=== PATIENT | male | born 1985 | race African-American/Black ===

== ENCOUNTER 2021-08-25 16:38 | Emergency (ER) | payer OTHER, SELFPAY ==
--- NOTE | ~2021-08-25 | CT_ITS ---
EXAMINATION: CT brain wo con DATE: 08/25/2021 17:11 INDICATION: Headache, left arm paresthesia TECHNIQUE: Computed tomography (CT) of the head was performed without intravenous contrast. The mA wa s adjusted according to patient size. Iterative reconstruction technique was employed. Exam dose: 60 5.33 mGy-cm total exam DLP. COMPARISON: None FINDINGS: No intracranial mass lesion or hemorrhage or cerebrovascular accident. Normal bella-white ma tter differentiation. Normal ventricular size. No subdural or epidural hematoma. There is patchy soft tissue thickening of the ethmoid air cells bilaterally. Small mucous retention c yst of left frontal sinus. Included paranasal sinuses and mastoid air cells are otherwise unremarkabl e. Sinuses are not included in this examination. No fracture or bone destruction of the cranial vault. IMPRESSION: No significant intracranial abnormality Reviewed, dictated and finalized at [facility]. Reviewed, dictated and finalized at [facility].
--- NOTE | ~2021-08-25 | CT_ITS ---
EXAMINATION: CT cervical spine wo con DATE: 08/25/2021 17:11 INDICATION: Left arm paresthesia TECHNIQUE: Computed tomography (CT) of the cervical spine was performed without intravenous contrast. Automated exposure control and iterative reconstruction technique were employed. Exam dose: 518.81 mGy-cm total exam DLP. COMPARISON: None FINDINGS: There is reversal cervical curvature which may be due to positioning or muscle spasm. C1 and C2 are normally aligned and the odontoid process is intact. No fracture or dislocation or locked facet or prevertebral soft tissue swelling. Cervical interspaces are relatively preserved. There is mild to moderate uncovertebral joint spurring bilaterally at C3-4, C4-5, C5-6 and C6-7. IMPRESSION: Mild to moderate uncovertebral joint spurring at C3-4, C4-5, C5-C6 and C6-7 Reviewed, dictated and finalized at [facility]. Reviewed, dictated and finalized at [facility].
[2021-08-25 16:46] VITALS: BP 151/90; PULSE 85; RESP 22; TEMP 36.4; O2SAT 100
--- NOTE | 2021-08-25 16:55 | ED.GENADULT ---
HPI - General Adult General Chief complaint: Unspecified Stated complaint: I need brain xrays Time Seen by Provider: 08/25/21 16:53 History of Present Illness HPI narrative: 36-year-old male presents the emergency room for evaluation with multiple complaints. Patient states he has been experiencing intermittent headaches and associated left arm numbness and tingling for over a year. Patient is a history of hypertension and anxiety for which he has not seen his primary care physician for over a year. Patient also complains abdominal pain. Denies fever denies nausea vomiting or diarrhea. Denies injury or trauma. Related Data Home Medications Medication Instructions Recorded Confirmed buspirone mg 08/25/21 08/25/21 hydroxyzine HCl 08/25/21 lisinopril 08/25/21 Allergies Allergy/AdvReac Type Severity Reaction Status Date / Time No Known Allergies Allergy Unverified 05/28/18 15:05 Review of Systems Review of Systems: CONSTITUTIONAL: Denies fever, chills, or sweats. EYES: Denies visual changes, redness, or discharge. ENT: Denies rhinorrhea, congestion, sore throat, or otalgia. CARDIOVASCULAR: Denies chest pain, palpitations, or edema. RESPIRATORY: Denies cough or dyspnea. GASTROINTESTINAL: Reports abdominal pain GENITOURINARY: Denies dysuria or hematuria. SKIN: Denies rash or itching. MUSCULOSKELETAL: Denies back pain, joint pain, or myalgia. NEUROLOGIC: Reports headache with left arm numbness. PSYCHIATRIC: Denies anxiety or depression. Exam Narrative: GENERAL: Well-appearing, well-nourished, and in no acute distress. HEAD: Normocephalic, atraumatic. EYES: PERRLA and EOMI. ENT: Nares clear, no rhinorrhea or epistaxis. Mucous membranes moist. CHEST: Clear to auscultation. No respiratory distress. No wheezes rales or rhonchi HEART: Regular rate and rhythm. No murmur heard. Normal peripheral pulses. ABDOMEN: Soft, nontender, nondistended, normal active bowel sounds. EXTREMITIES: Normal range of motion. No edema. SKIN: Warm, dry, no rash. NEURO: No focal deficits. Alert and oriented x3. PSYCH: Normal mood and affect. Course Vital Signs Vital signs: Vital Signs Temperature 36.4 C L 08/25/21 16:46 Pulse Rate 85 08/25/21 16:46 Respiratory Rate 22 H 08/25/21 16:46 Blood Pressure 151/90 H 08/25/21 16:46 Pulse Oximetry 100 08/25/21 16:46 Temperature 36.4 C L 08/25/21 16:46 Pulse Rate 85 08/25/21 16:46 Respiratory Rate 22 H 08/25/21 16:46 Blood Pressure 151/90 H 08/25/21 16:46 Pulse Oximetry 100 08/25/21 16:46 Medical Decision Making MDM Narrative Medical decision making narrative: 36-year-old male presents the emergency room with multiple complaints. Patient states that he has had an intermittent headache on the left side of his head, associated with left arm numbness and tingling. CBC CMP and troponin on unremarkable. CT head was showed no acute intracranial abnormalities. CT of the C-spine showed multilevel degenerative arthritis. This could be the cause of his headaches and his left arm numbness and tingling. Vital Signs Vital Signs: Vital Signs Temperature 36.4 C L 08/25/21 16:46 Pulse Rate 85 08/25/21 16:46 Respiratory Rate 22 H 08/25/21 16:46 Blood Pressure 151/90 H 08/25/21 16:46 Pulse Oximetry 100 08/25/21 16:46 Temperature 36.4 C L 08/25/21 16:46 Pulse Rate 85 08/25/21 16:46 Respiratory Rate 22 H 08/25/21 16:46 Blood Pressure 151/90 H 08/25/21 16:46 Pulse Oximetry 100 08/25/21 16:46 Lab Data Result diagrams: 08/25/21 17:03 08/25/21 17:03 Labs: Lab Results 08/25/21 08/25/21 08/25/21 Range/Units 17:03 17:03 17:03 WBC (4.5-10.0) K/mm3 RBC (4.6-6.20) M/mm3 Hgb (14.0-18.0) g/dL Hct (42.0-52.0) % MCV (80-100) fl MCH (26-34) pg MCHC (32-36) g/dl RDW (11.5-14.5) % Plt Count (150-375) k/mm3 MPV (7.4-10.4) fl Immature Gran % (Auto) (0-0.5) %
[2021-08-25 17:14] LABS: Basophils Absolute Auto 0.1 K/mm3 (0.0-0.1); Basophils Percent Auto 0.8 % (0.2-1.2); Eosinophils Absolute Auto 0.1 K/mm3 (0-0.3); Eosinophils Percent Auto 1.6 % (0-4.4); Hematocrit 49.1 % (42.0-52.0); Hemoglobin 16.5 g/dL (14.0-18.0); Immature Granulocyte Absolute 0.02 K/mm3 (0.00-0.031); Immature Granulocyte Percent A 0.3 % (0-0.5); Lymphocytes Absolute Auto 1.87 K/mm3 (0.9-3.2); Lymphocytes Percent Auto 25.2 % (18.3-44.2); Mean Corpuscular HGB Conc 33.6 g/dl (32-36); Mean Corpuscular Hemoglobin 30.7 pg (26-34); Mean Corpuscular Volume 91.3 fl (80-100); Mean Platelet Volume 9.3 fl (7.4-10.4); Monocytes Absolute Auto 0.6 K/mm3 (0.1-0.6); Monocytes Percent Auto 7.5 % (2.6-8.5); Neutrophils Absolute Auto 4.8 K/mm3 (1.3-6.7); Neutrophils Percent Auto 64.6 % (45.5-73.1); Platelet Count Result 268 k/mm3 (150-375); Red Blood Count 5.38 M/mm3 (4.6-6.20); Red Cell Distribution Width 12.8 % (11.5-14.5); White Blood Count 7.4 K/mm3 (4.5-10.0)
[2021-08-25 17:16] LABS: Appearance Urine Clear (Clear); Bilirubin Urine Negative (Negative); Blood Urine Negative (Negative); Color Urine Yellow (Yellow); Glucose Urine UA Negative (Negative); Ketones Urine Negative (Negative); Leukocyte Esterase Ur Negative LEU/UL (Negative); Nitrate Urine Negative (Negative); Protein Urine Negative (Negative); Urobilinogen Urine 0.2 mg/dL (<2.0)
[2021-08-25 17:24] LABS: Alanine Aminotransferase 28 U/L (4-50); Albumin Level 4.7 g/dL (3.5-5.1); Alkaline Phosphatase 90 U/L (38-126); Anion Gap 6 mmol/L (8-16); Aspartate Amino Transferase 30 U/L (17-59); Bilirubin,Total 0.5 mg/dL (0.2-1.3); Blood Urea Nitrogen 17 mg/dL (9-20); Calcium 9.1 mg/dL (8.4-10.2); Carbon Dioxide 27 mmol/L (22-30); Chloride 103 mmol/L (98-107); Estimated CRCL calculation 95 ml/min; Estimated Glomerular Filt Rate > 60; Glucose 110 mg/dL (65-110); Potassium 4.2 mmol/L (3.4-5.0); Sodium 136 mmol/L (137-145)
[2021-08-25 17:25] LABS: RBC Urine 0-2 /hpf (0-2); WBC Urine 0-3 /hpf
[2021-08-25 17:32] LABS: Add Urine Microscopic? YES
[2021-08-25 17:35] LABS: Amphetamine Screen Urine Negative (Negative); Barbiturate Screen Urine Negative (Negative); Benzodiazepines Screen Urine Negative (Negative); Cannabinoid Screen Urine Negative (Negative); Cocaine Screen Urine Negative (Negative); Methadone Screen Urine Negative (Negative); Opiate Screen Urine Negative (Negative); Phencyclidine Screen Urine Negative (Negative); Troponin I < 0.012 ng/mL (0.000-0.034)
[2021-08-25 17:52] VITALS: BP 137/97; PULSE 98; RESP 17; O2SAT 100
== END 2021-08-25 17:52 | disposition home or self-care (01) ==
PROVIDERS: Emergency Provider Nurse Practitioner Family; PCP Physician Assistant
DX: R51.9 Headache, unspecified (principal); M47.812 Spondylosis without myelopathy or radiculopathy, cervical region; F41.9 Anxiety disorder, unspecified
CPT/HCPCS: 36415; 70450; 72125; 80053; 80307; 81001; 84484; 85025; 99284

== ENCOUNTER 2022-07-02 13:38 | Outpatient (CLI) | payer OTHER, SELFPAY ==
--- NOTE | ~2022-07-02 | MR_ITS ---
MRI of the lumbar spine Clinical History: Back pain, right-sided sciatica Technique: Axial T2-weighted images, and sagittal T1-weighted, T2-weighted, and T2 fat-sat images wer e acquired. Findings: There is no fracture or subluxation of the lumbar spine. Vertebral bodies maintain normal h eight and alignment. No suspicious bone marrow signal abnormality seen. At L1-L2, L2-L3, L3-L4, and L4-L5, intervertebral discs maintain normal signal and position. No disc bulge or herniation at these levels. No spinal canal stenosis or neural foraminal narrowing at these levels. At L5-S1, there is moderate degenerative disc narrowing. There is a diffuse disc bulge, most prominen t at the right foraminal region, with mild facet arthropathy present. No spinal canal stenosis. There is moderate right neural foraminal narrowing. Left neural foramen preserved. Paravertebral soft tissues are unremarkable. Impression: Degenerative spondylosis at L5-S1, with moderate right neural foraminal narrowing at this level. Reviewed, dictated and finalized at [facility]. ORT WORKER Impression: Degenerative spondylosis at L5-S1, with moderate right neural foraminal narrowi ng at this level.
== END 2022-07-02 13:39 | disposition home or self-care (01) ==
PROVIDERS: PCP Family Medicine; Visit Provider Family Medicine
DX: M54.41 Lumbago with sciatica, right side (principal); M47.897 Other spondylosis, lumbosacral region
CPT/HCPCS: 72148

== ENCOUNTER 2022-07-09 12:28 | Outpatient (CLI) | payer OTHER, SELFPAY ==
--- NOTE | ~2022-07-09 | CT_ITS ---
EXAMINATION: CT abdomen pelvis wo con DATE: 07/09/2022 12:52 INDICATION: Chronic left lower quadrant pain TECHNIQUE: Computed tomography (CT) of the abdomen and pelvis was performed without intravenous contr ast. The dose-length product was 693.92 mGy-cm. Automated exposure control and iterative reconstructi on technique were employed. COMPARISON: None. FINDINGS: Lung bases are unremarkable. No significant pleural or pericardial effusion. Heart size nor mal. There are calcified granulomas of the spleen. The liver, pancreas, adrenal glands and kidneys ar e unremarkable. No hydronephrosis. Gallbladder is present. Nonobstructive bowel pattern. Normal appen krystle. No evidence for diverticulitis. No abnormal pelvic masses or fluid collections. No evidence for hernia. No free air or free fluid. Mild osteoarthritis of the hips. No acute bone or joint abnormalit y. Bladder wall is mildly prominent, likely due to underdistention. IMPRESSION: 1. No findings to account for patient's symptoms. No acute abnormality. Reviewed, dictated and finalized at [facility]. S TRANSFER CLERK
== END 2022-07-09 12:29 | disposition home or self-care (01) ==
PROVIDERS: PCP Family Medicine; Visit Provider Family Medicine
DX: R10.32 Left lower quadrant pain (principal); G89.29 Other chronic pain
CPT/HCPCS: 74176

== ENCOUNTER 2023-01-01 15:51 | Emergency (ER) | payer OTHER, SELFPAY ==
[2023-01-01 16:45] VITALS: BP 138/82; PULSE 80; RESP 20; TEMP 36.6; O2SAT 100
== END 2023-01-01 20:00 | disposition left against medical advice (07) ==
PROVIDERS: PCP Family Medicine
DX: R51.9 Headache, unspecified (principal)
CPT/HCPCS: 99199

== ENCOUNTER 2023-09-12 12:31 | Emergency (ER) | payer OTHER, SELFPAY ==
--- NOTE | 2023-09-12 12:41 | ECG_ITS ---
SEE SCANNED COPY FOR CONFIRMED REPORT. MTDD
[2023-09-12 12:45] VITALS: BP 127/86; PULSE 87; RESP 19; TEMP 37.3; O2SAT 98
[2023-09-12 13:37] LABS: Influenza A QL RT-PCR Negative (Negative); Influenza B QL RT-PCR Negative (Negative); RSV RNA, RT-PCR Negative (Negative); SARS-CoV-2 RNA PCR Negative (Negative)
[2023-09-12 14:01] VITALS: BP 120/81; PULSE 74; RESP 22; O2SAT 98
--- NOTE | 2023-09-12 14:18 | ED.WEAKNESS ---
HPI - Weakness General Chief complaint: Weakness Stated complaint: fatigue Time Seen by Provider: 09/12/23 12:36 History of Present Illness HPI Narrative: Patient is a 38-year-old male who presents ER with fatigue. Intermittently over last week and half. Last 2 days he has had some sinus congestion with sore throat. Has felt chilled. No documented fevers. No known sick contacts. No chest pain or chest pressure. Denies abdominal or urinary symptoms. Related Data Home Medications Medication Instructions Recorded Confirmed buspirone 10 mg tablet mg 08/25/21 08/25/21 hydroxyzine HCl 25 mg tablet 08/25/21 lisinopril 20 mg tablet 08/25/21 Allergies Allergy/AdvReac Type Severity Reaction Status Date / Time No Known Allergies Allergy Unverified 05/28/18 15:05 Review of Systems Review of Systems: All systems reviewed & are unremarkable except as noted in HPI and below Constitutional: Constitutional: Reports chills, Reports fatigue and Denies fever(s) ENT: Reports nasal congestion and Reports sore throat Cardiovascular: Cardiovascular: Reports no additional cardiovascular complaints Respiratory: Respiratory: Reports no additional respiratory complaints Gastrointestinal: Gastrointestinal: Reports no additional gastrointestinal complaints Genitourinary: Genitourinary: Reports no additional male genitourinary complaints [facility] Past Medical History Medical History (Updated 09/12/23 @ 14:24 by Melchor Campos MD) Healthy adult male Surgical History Surgical History (Updated 09/12/23 @ 14:24 by Melchor Campos MD) No history of previous surgery Exam Narrative: GENERAL: Well-appearing, well-nourished, and in no acute distress. HEAD: Normocephalic, atraumatic. ENT: Mucous membranes moist. TMs normal bilaterally. Normal posterior oropharynx. NECK: Supple. CHEST: Clear to auscultation. No respiratory distress. HEART: Regular rate and rhythm. Normal peripheral pulses. ABDOMEN: Soft, nontender, nondistended. EXTREMITIES: Normal range of motion. No edema. NEURO: Alert and oriented x3. PSYCH: Normal mood and affect. Course Course Emergency Course: Patient resting comfortably. Informed of results and treatment plan. Discharge home. Vital Signs Vital signs: Vital Signs Temperature 99.2 F 09/12/23 12:45 Pulse Rate 87 09/12/23 12:45 Respiratory Rate 19 09/12/23 12:45 Blood Pressure 127/86 09/12/23 12:45 Pulse Oximetry 98 09/12/23 12:45 Temperature 99.2 F 09/12/23 12:45 Pulse Rate 74 09/12/23 14:01 Respiratory Rate 22 H 09/12/23 14:01 Blood Pressure 120/81 09/12/23 14:01 Pulse Oximetry 98 09/12/23 14:01 MDM - Weakness Lab Data Labs: Lab Results 09/12/23 Range/Units 12:56 Influenza A (RT-PCR) Negative (Negative) Influenza B (RT-PCR) Negative (Negative) RSV (RT-PCR) Negative (Negative) SARS-CoV-2 RNA (RT-PCR) Negative (Negative) Discharge Plan Discharge Clinical Impression: Acute viral syndrome Patient Disposition: Home, Self-Care Condition: Stable Instructions: Viral Syndrome (ED) Additional Instructions: As discussed you have a viral illness. Unfortunately there are no specific medications we can give you to make the illness end faster. Antibiotics do not work for viral illnesses. However, you can take Acetaminophen or Ibuprofen to help with fevers and pain. Stay well hydrated and rested. Return to the emergency department if your fevers and chills continue to worse after 5 days, if you develop worsening cough with thick sputum, or are unable to stay hydrated. Contact your primary care provider in the next few days for a re-evaluation and to make sure your symptoms are improving. Prescriptions: No Action lisinopril 20 mg tablet buspirone 10 mg tablet hydroxyzine HCl 25 mg tablet Follow-up/Referrals: Jeannie,Emmett Hartmann MD [Primary Care Provid
== END 2023-09-12 14:30 | disposition home or self-care (01) ==
PROVIDERS: Emergency Provider Emergency Medicine; PCP Family Medicine
DX: B34.9 Viral infection, unspecified (principal); Z20.822 Contact with and (suspected) exposure to COVID-19
CPT/HCPCS: 87637; 93005; 99283

== ENCOUNTER 2024-02-29 16:31 | Emergency (ER) | payer OTHER, SELFPAY ==
--- NOTE | ~2024-02-29 | XR_ITS ---
XR chest 2V Ordering provider: Teresa Suarez MD History: 38 years Male with . dizziness . Comparison: November 27, 2014 FINDINGS: MEDIASTINUM: The cardiac silhouette is not enlarged. LUNGS: No infiltrates, effusions or pneumothorax. OTHER: No free air under the diaphragm. IMPRESSION: No acute cardiopulmonary pathology. Reviewed, dictated and finalized at [facility].
[2024-02-29 16:36] VITALS: BP 140/88; PULSE 82; RESP 16; TEMP 36.6; O2SAT 100
--- NOTE | 2024-02-29 16:40 | ECG_ITS ---
Test Date: 2024-02-29 16:42:47 Measurements Intervals Rosalia Rate: 96 P: 49 IN: 160 QRS: 45 QRSD: 89 T: 34 QT: 333 QTc: 421 Interpretive Statements SINUS RHYTHM NORMAL ELECTROCARDIOGRAM No previous ECG available for comparison Electronically Signed On 03-01-2024 09:42:32 CDT by Wilmer Bernard M.D.
[2024-02-29 16:57] LABS: Basophils Absolute Auto 0.1 K/mm3 (0.0-0.1); Basophils Percent Auto 0.8 % (0.2-1.2); Eosinophils Absolute Auto 0.1 K/mm3 (0-0.3); Eosinophils Percent Auto 1.2 % (0-4.4); Hematocrit 43.7 % (42.0-52.0); Hemoglobin 15.3 g/dL (14.0-18.0); Immature Granulocyte Absolute 0.01 K/mm3 (0.00-0.031); Immature Granulocyte Percent A 0.2 % (0-0.5); Lymphocytes Absolute Auto 2.09 K/mm3 (0.9-3.2); Lymphocytes Percent Auto 32.2 % (18.3-44.2); Mean Corpuscular Hemoglobin 30.6 pg (26-34); Mean Corpuscular Volume 87.4 fl (80-100); Monocytes Absolute Auto 0.6 K/mm3 (0.1-0.6); Monocytes Percent Auto 8.5 % (2.6-8.5); Neutrophils Absolute Auto 3.7 K/mm3 (1.3-6.7); Neutrophils Percent Auto 57.1 % (45.5-73.1); Platelet Count Result 274 k/mm3 (150-375); White Blood Count 6.5 K/mm3 (4.5-10.0)
[2024-02-29 17:10] LABS: Alanine Aminotransferase 33 U/L (6-50); Albumin Level 4.7 g/dL (3.5-5.1); Alkaline Phosphatase 100 U/L (38-126); Anion Gap 10 mmol/L (4-12); Aspartate Amino Transferase 31 U/L (17-59); Bilirubin,Total 0.6 mg/dL (0.2-1.3); Blood Urea Nitrogen 20 mg/dL (9-20); Calcium 9.7 mg/dL (8.4-10.2); Carbon Dioxide 25 mmol/L (22-30); Chloride 102 mmol/L (98-107); Estimated CRCL calculation 86 ml/min; Estimated Glomerular Filt Rate > 60; Glucose 92 mg/dL (65-110); Potassium 4.4 mmol/L (3.4-5.0); Sodium 137 mmol/L (137-145)
[2024-02-29 17:47] LABS: Add Urine Microscopic? NO; Appearance Urine Clear (Clear); Bilirubin Urine Negative (Negative); Blood Urine Negative (Negative); Color Urine Yellow (Yellow); Glucose Urine UA Negative (Negative); Ketones Urine Negative (Negative); Leukocyte Esterase Ur Negative LEU/UL (Negative); Nitrate Urine Negative (Negative); Protein Urine Negative (Negative); Specific Grav Ur 1.011 (1.001-1.035); Urobilinogen Urine 0.2 mg/dL (<2.0)
--- NOTE | 2024-02-29 18:14 | ED.DIZZY ---
HPI - Dizziness General Chief Complaint: Dizziness Stated Complaint: dizziness Time Seen by Provider: 02/29/24 16:59 History of Present Illness HPI Narrative: Patient is a 38-year-old male who presents to the ER with dizziness over the last month. He reports it gets worse in the evenings. Patient reports the episodes are intermittent but when they do happen he drinks water and paces. He reports they do not happen every day and he does not notice the room spinning, but he feels like it might. Patient denies nausea or vomiting. He reports he is medicated for anxiety and high blood pressure. Patient reports reports that p.r.n. medication he has been prescribed for anxiety does not really work for him. Patient denies chest pain, shortness of breath, or other signs of illness. Related Data Home Medications Medication Instructions Recorded Confirmed buspirone 10 mg tablet mg 08/25/21 08/25/21 hydroxyzine HCl 25 mg tablet 08/25/21 lisinopril 20 mg tablet 08/25/21 Allergies Allergy/AdvReac Type Severity Reaction Status Date / Time No Known Allergies Allergy Unverified 05/28/18 15:05 Review of Systems Review of Systems: All systems reviewed & are unremarkable except as noted in HPI and below PMFSH Past Medical History Medical History Healthy adult male Surgical History Surgical History No history of previous surgery Exam Narrative: GENERAL: Well appearing, well-nourished, non-toxic, in no acute distress. HEAD: Normocephalic, atraumatic. NECK: Supple. No adenopathy, no masses. RESPIRATORY: Airway patent, respirations nonlabored. Clear to auscultation bilaterally, no rales, rhonchi, wheezing. CARDIOVASCULAR: Regular rate and rhythm without murmurs, rubs, or gallops. Peripheral pulses 2+ and equal bilaterally. ABDOMINAL: Soft, nontender, nondistended, no hepatosplenomegaly. Normoactive BS. MUSCULOSKELETAL: Moves all extremities. Strength/ROM intact without gross deformities. SKIN: Warm, dry, normal color. No rashes. NEURO: A&O X3. Speech clear. Cranial nerves II-XII grossly intact. Steady gait. No ataxic movements. PSYCHIATRIC: Appropriate mood and affect. Normal interaction. Course Vital Signs Vital signs: Vital Signs Temperature 36.6 C 02/29/24 16:36 Pulse Rate 82 02/29/24 16:36 Respiratory Rate 16 02/29/24 16:36 Blood Pressure 140/88 02/29/24 16:36 Pulse Oximetry 100 02/29/24 16:36 Oxygen Delivery Room Air 02/29/24 16:36 Temperature 36.8 C 02/29/24 21:22 Pulse Rate 74 02/29/24 21:22 Respiratory Rate 16 02/29/24 21:22 Blood Pressure 135/74 02/29/24 21:22 Pulse Oximetry 98 02/29/24 21:22 Oxygen Delivery Room Air 02/29/24 16:36 MDM - Dizziness MDM Narrative Medical decision making narrative: Patient is a 38-year-old male who presents to the ER with dizziness over the last month. He reports it gets worse in the evenings. Patient reports the episodes are intermittent but when they do happen he drinks water and paces. He reports they do not happen every day and he does not notice the room spinning, but he feels like it might. Patient denies nausea or vomiting. He reports he is medicated for anxiety and high blood pressure. Patient reports reports that p.r.n. medication he has been prescribed for anxiety does not really work for him. Patient denies chest pain, shortness a breath, or other signs of illness. Patient is at work is unremarkable. It was advised that patient stand up and walk around to see if his symptoms return. Patient will take an Ativan by mouth here in the ER to see if that helps relieve his symptoms. He should continue to take his BuSpar as needed for anxiety starting again tomorrow morning. Patient should follow-up with his primary care provider for further treatment of his anxiety. He and his l
[2024-02-29] MEDS: SODIUM CHLORIDE 0.9% IV 1,000 ML 999 ML IV CONT (18:45)
[2024-02-29 18:47] VITALS: BP 119/76; PULSE 68; RESP 16; O2SAT 99
[2024-02-29 19:14] LABS: Magnesium 2.2 mg/dL (1.6-2.3)
[2024-02-29 19:47] LABS: Amphetamine Screen Urine Negative (Negative); Barbiturate Screen Urine Negative (Negative); Benzodiazepines Screen Urine Negative (Negative); Cannabinoid Screen Urine Negative (Negative); Cocaine Screen Urine Negative (Negative); Methadone Screen Urine Negative (Negative); Opiate Screen Urine Negative (Negative); Phencyclidine Screen Urine Negative (Negative)
[2024-02-29 20:00] LABS: Influenza A QL RT-PCR Negative (Negative); Influenza B QL RT-PCR Negative (Negative); RSV RNA, RT-PCR Negative (Negative); SARS-CoV-2 RNA PCR Negative (Negative)
[2024-02-29 21:22] VITALS: BP 135/74; PULSE 74; RESP 16; TEMP 36.8; O2SAT 98
== END 2024-02-29 21:24 | disposition home or self-care (01) ==
PROVIDERS: Emergency Medicine; Emergency Provider Registered Nurse; PCP Family Medicine
DX: H81.10 Benign paroxysmal vertigo, unspecified ear (principal); F41.9 Anxiety disorder, unspecified; Z79.899 Other long term (current) drug therapy
CPT/HCPCS: 36415; 71046; 80053; 80307; 81003; 83735; 84443; 85025; 87637; 93005; 96360; 99283; J7030